=== PATIENT | female | born 1955 | race Caucasian/White ===

== ENCOUNTER 2016-04-27 11:25 | Inpatient (IN) | payer MEDICAID ==
--- NOTE | 2016-04-27 12:00 | EDPHY ---
HPI/HX/ROS/PE/MDM Narrative: Chief complaint: Cough, shortness of breath HPI: 60-year-old female with a past medical history of recurrent pneumonia. She has also had an empyema about 5 years ago which required a right lung resection. She is presenting with 4 days of worsening cough and shortness of breath. Cough is described as nonproductive. Has had some subjective fevers and chills at home. Some pain with coughing but otherwise no central chest pain. No nausea or vomiting. She denies a history of COPD but does states that she is supposed to be using inhalers daily which she does intermittently. Does not recall if she got a flu vaccine this year not. ROS: 10 point Review of Systems is negative except as noted in the HPI. Physical exam: Gen: Awake, Alert, No Distress, sats 88% on room air HEENT: Nose: no rhinorrhea Eyes: PERRLA, EOMI Mouth: Moist mucosa Neck: Supple, no JVD Chest: nontender, breath sounds decreased at the right base with some crackles, no wheeze Heart: S1, S2 normal, no murmur Abd: Soft, non-tender, no guarding Back: no CVA tenderness, no midline tenderness Ext: no edema, non-tender Skin: no rash Neuro: CN II-XII intact, Sensation grossly intact, Strength 5/5 in bilateral upper and lower extremities ED Course: Chest x-ray: Interpreted by Dr. Alicea: Prominent perihilar interstitial markings consistent with viral process or acute bronchitis. No focal infiltrate. CBC is normal. Chest x-ray shows no focal infiltrate. Patient had no significant wheeze on initial examination but is been hypoxic. She was given a DuoNeb and is feeling improved. Repeat examination again she has no significant wheeze. Patient was weaned down to room air an oxygen saturations dropped down to 84%. She was restarted back on oxygen 2 L via nasal cannula. She was also given prednisone 60 mg p. o.. I have discussed with , hospitalist. He will admit to his service for further evaluation. Given the patient is afebrile and has no white count or productive sputum at this time he will hold off on antibiotics. - Data Points Laboratory Results: Laboratory Results 04/27/16 11:59 04/27/16 11:59 04/27/16 04/27/16 11:59 11:47 WBC 9.35 10^3/uL (3.80-9.50) RBC 5.18 10^6/uL (4.18-5.33) Hgb 17.0 H g/dL (12.6-16.3) Hct 50.7 H % (38.0-47.0) MCV 97.9 fL (81.5-99.8) MCH 32.8 pg (27.9-34.1) MCHC 33.5 g/dL (32.4-36.7) RDW 12.6 % (11.5-15.2) Plt Count 271 10^3/uL (150-400) MPV 9.0 fL (8.7-11.7) Neut % (Auto) 56.3 % (39.3-74.2) Lymph % (Auto) 27.6 % (15.0-45.0) Emmons % (Auto) 10.5 % (4.5-13.0) Eos % (Auto) 4.8 % (0.6-7.6) Baso % (Auto) 0.6 % (0.3-1.7) Nucleat RBC Rel Count 0.0 % (0.0-0.2) Absolute Neuts (auto) 5.26 10^3/uL (1.70-6.50) Absolute Lymphs (auto) 2.58 10^3/uL (1.00-3.00) Absolute Monos (auto) 0.98 H 10^3/uL (0.30-0.80) Absolute Eos (auto) 0.45 H 10^3/uL (0.03-0.40) Absolute Basos (auto) 0.06 10^3/uL (0.02-0.10) Absolute Nucleated RBC 0.00 10^3/uL (0-0.01) Immature Gran % 0.2 % (0.0-1.1) Immature Gran # 0.02 10^3/uL (0.00-0.10) Sodium 142 mEq/L (134-144) Potassium 4.7 mEq/L (3.5-5.2) Chloride 104 mEq/L (97-110) Carbon Dioxide 25 mEq/l (22-31) Anion Gap 13 mEq/L (8-16) BUN 12 mg/dL (7-23) Creatinine 0.6 mg/dL (0.6-1.0) Estimated GFR > 60 Glucose 97 mg/dL (70-100) Calcium 9.8 mg/dL (8.5-10.4) Troponin I < 0.012 ng/mL (0-0.034) Influenza Typ A,B (DFA) NEGATIVE FOR FLU (NEGATIVE) Medications Given: Discontinued Medications Albuterol/Ipratropium (Duoneb) 3 ml IH EDNOW ONE Stop: 04/27/16 13:08 Last Admin: 04/27/16 13:33 Dose: 3 ml Prednisone (Prednisone) 60 mg PO EDNOW ONE Stop: 04/27/16 14:23 Last Admin: 04/27/16 14:33 Dose: 60 mg General Time Seen by Provider: 04/27/16 11:36 Initial Vital Signs: Initial Vital Signs Temperature (C) 37 C 04/27/16 11:26 Heart Rate 82 04/27/16 11:26 Respiratory Rate 18 04/27/16 11:26 Blood Pressure 122/74 H 04/27/16 11:26 O2 Sat (%) 92 04/27/16 11:26 O2 Delivery Mode Nasal Cannula O2 (L/minute) 3 Allergies/Adverse Reactions: No Known Allergies Allergy (Verified 04/27/16 11:26) Home Medications: Medication Instructions Recorded NK [No Known Home Meds] 04/27/16 Departure - Departure Disposition: [facility] Inpatient Acute Clinical Impression: Chronic obstructive pulmonary disease with acute exacerbation Condition: Fair
[2016-04-27 12:39] LABS: % IMMATURE GRANULYOCYTES 0.2 % (0.0-1.1); ABSOLUTE IMMATURE GRANULOCYTES 0.02 10^3/uL (0.00-0.10); ADD DIFF? NO; ADD MORPH? NO; ADD SCAN? NO; ATYPICAL LYMPHOCYTE FLAG 30 (0-99); FRAGMENT RBC FLAG 0 (0-99); HEMATOCRIT 50.7 % (38.0-47.0); LEFT SHIFT FLG 0 (0-99); LIPEMIA HEMOLYSIS FLAG 80 (0-99); MEAN CELL HEMOGLOBIN 32.8 pg (27.9-34.1); MEAN CELL HEMOGLOBIN CONCENTR. 33.5 g/dL (32.4-36.7); MEAN CELL VOLUME 97.9 fL (81.5-99.8); PLATELET CLUMPS FLAG 0 (0-99); PLATELET COUNT 271 10^3/uL (150-400); RED BLOOD CELL COUNT 5.18 10^6/uL (4.18-5.33); RED CELL DISTRIBUTION WIDTH 12.6 % (11.5-15.2)
--- NOTE | 2016-04-27 12:48 | DX ---
PA and Lateral Chest X-Ray 1143 hours History: Cough and congestion. Previous right lower lobe resection. Comparison to prior study from February 13, 2011. Findings: Heart size and pulmonary vasculature are normal. There is peribronchial cuffing seen in t he perihilar region and prominence of perihilar interstitial markings. There are no peripheral infilt rates or effusions. Osseous structures are intact. Impression: Prominence of perihilar interstitial markings and peribronchial cuffing. Findings are non specific but can be seen with bronchitis, reactive airway disease, or viral process.
[2016-04-27 13:01] LABS: ANION GAP 13 mEq/L (8-16); CALCIUM 9.8 mg/dL (8.5-10.4); CARBON DIOXIDE 25 mEq/l (22-31); CHLORIDE 104 mEq/L (97-110); CREATININE 0.6 mg/dL (0.6-1.0); GLOMERULAR FILTRATION RATE > 60; GLUCOSE 97 mg/dL (70-100); POTASSIUM 4.7 mEq/L (3.5-5.2); SODIUM 142 mEq/L (134-144)
[2016-04-27] MEDS ORDERED: IPRATROPIUM/ALBUTEROL 3 ML DEYVIAL IH ONE (13:07)
[2016-04-27 13:10] LABS: TROPONIN I < 0.012 ng/mL (0-0.034)
[2016-04-27] MEDS ORDERED: predniSONE 20 MG TAB PO ONE (14:22)
[2016-04-27] MEDS ORDERED: ONDANSETRON 4 MG/2 ML VIAL IVP PRN (16:55)
[2016-04-27] MEDS ORDERED: ALBUTEROL 3 ML DEYVIAL IH PRN (16:55)
[2016-04-27] MEDS ORDERED: ACETAMINOPHEN 325 MG TAB PO PRN (16:55)
[2016-04-27] MEDS ORDERED: ONDANSETRON DISINTEGRATING 4 MG TAB PO PRN (16:55)
[2016-04-27] MEDS ORDERED: TEMAZEPAM 15 MG CAP PO PRN (16:55)
--- NOTE | 2016-04-27 17:27 | GHP ---
[f rep st] HISTORY AND PHYSICAL DATE OF ADMISSION: 04/27/2016 CHIEF COMPLAINT: Shortness of breath. HISTORY OF PRESENT ILLNESS: A 60-year-old female smoker who presents with 3 days of increasing short ness of breath. She started off with an upper respiratory tract infection with sore throat, runny no se, and fevers. This progressed into shortness of breath and wheezing. She has a little bit of ches t pain from coughing. She has no productive cough currently with no sputum. REVIEW OF SYSTEMS: A 10-point review of systems was obtained and was negative. PAST MEDICAL HISTORY: Had a right-sided necrotizing pneumonia with empyema requiring VATS with decor tication. MEDICATIONS: None. SOCIAL HISTORY: Smokes about 5 cigarettes per day. No alcohol. FAMILY HISTORY: Reviewed and noncontributory. PHYSICAL EXAM: VITAL SIGNS: Afebrile. Blood pressure is 131/83, heart rate is 82, oxygen saturatio n 96% on 3 L, and was 84% on room air. GENERAL: She is well developed in no apparent distress. ROBYN NT: Nonicteric sclerae. Extraocular movements intact. Moist mucous membranes. NECK: Supple. No thyromegaly. LUNGS: Good effort. Some coarse expiratory wheezes and slight rhonchi bilaterally. C ARDIOVASCULAR: Regular rate and rhythm. No murmurs, rubs, or gallops. ABDOMEN: Positive bowel holli nds. Soft, nontender, nondistended. No hepatosplenomegaly. EXTREMITIES: No clubbing, cyanosis, or edema. SKIN: Without rash. Warm, intact. NEUROLOGIC: Alert and oriented x3. Moving all 4 extre mities equally. PSYCHIATRIC: Normal mood and affect. LABORATORIES: White count is 9, hemoglobin is 17, platelets are 271. Chemistries normal. Troponin is negative. Chest x-ray, personally reviewed and interpreted, shows no pneumonia. ASSESSMENT: This is a 60-year-old female presenting with a chronic obstructive pulmonary disease exa cerbation. PLAN: 1. COPD exacerbation. We will continue steroids that have been ordered by the emergency department. We will also do frequent nebulizer treatments. She has no change in sputum color and sputum. No e levated white blood cell count, and a normal chest x-ray, and thus we will hold off on antibiotics. Since she says she is prone to pneumonia, we will get another chest x-ray in the morning. 2. Acute hypoxic respiratory failure. Hopefully, this will improve with further treatment. 3. Tobacco use. We will use a nicotine patch. /[id number]/MODL
[2016-04-27] MEDS: IPRATROPIUM/ALBUTEROL 3 ML DEYVIAL IH SCH (21:52)
[2016-04-28] MEDS: IPRATROPIUM/ALBUTEROL 3 ML DEYVIAL IH SCH ×4 (05:57→22:14)
[2016-04-28 05:58] LABS: % IMMATURE GRANULYOCYTES 0.6 % (0.0-1.1); ABSOLUTE IMMATURE GRANULOCYTES 0.06 10^3/uL (0.00-0.10); ADD DIFF? NO; ADD MORPH? NO; ADD SCAN? NO; ATYPICAL LYMPHOCYTE FLAG 30 (0-99); FRAGMENT RBC FLAG 0 (0-99); HEMATOCRIT 49.9 % (38.0-47.0); LEFT SHIFT FLG 0 (0-99); LIPEMIA HEMOLYSIS FLAG 90 (0-99); MEAN CELL HEMOGLOBIN 33.5 pg (27.9-34.1); MEAN CELL HEMOGLOBIN CONCENTR. 34.1 g/dL (32.4-36.7); MEAN CELL VOLUME 98.4 fL (81.5-99.8); PLATELET CLUMPS FLAG 0 (0-99); PLATELET COUNT 262 10^3/uL (150-400); RED BLOOD CELL COUNT 5.07 10^6/uL (4.18-5.33); RED CELL DISTRIBUTION WIDTH 12.3 % (11.5-15.2)
[2016-04-28 06:05] LABS: ANION GAP 10 mEq/L (8-16); CALCIUM 9.3 mg/dL (8.5-10.4); CARBON DIOXIDE 27 mEq/l (22-31); CHLORIDE 104 mEq/L (97-110); CREATININE 0.6 mg/dL (0.6-1.0); GLOMERULAR FILTRATION RATE > 60; GLUCOSE 104 mg/dL (70-100); POTASSIUM 5.3 mEq/L (3.5-5.2); SODIUM 141 mEq/L (134-144)
[2016-04-28] MEDS: ENOXAPARIN 40 MG/0.4 ML SYR SC SCH (07:32)
[2016-04-28] MEDS: predniSONE 20 MG TAB PO SCH (07:33)
[2016-04-28] MEDS: NICOTINE 7 MG/24 HR PATCH TD SCH (07:33)
--- NOTE | 2016-04-28 12:16 | DX ---
PA Upright and Lateral Views of the Chest, 11:25 a.m. on April 28, 2016 Clinical History: 60-year-old female inpatient with a COPD exacerbation. Rule out pneumonia. Comparison Study: Chest, dated April 27, 2016. Findings: The inspiratory depth is to between the 9th and 10th posterior rib levels. The cardiac silh ouette is mildly enlarged, with a C:T ratio of 15 : 27 cm. There is a moderate degree of central carmen hilar bronchial wall thickening. There is no focal infiltrate, pleural effusion, peripheral interstit ial edema, or pneumothorax. The osseous structures are age-appropriate. The trachea is midline. Impression: Moderate perihilar bronchitis with mild cardiomegaly, but no focal infiltrate or pleural effusion.
[2016-04-28] MEDS ORDERED: AZITHROMYCIN 250 MG TAB PO ONE (16:11)
--- NOTE | 2016-04-28 16:12 | HOSPPROG ---
Hospitalist Progress Note Assessment/Plan: 60 yo F with copd pw acute copd exacerbation # acute on chronic copd: on personal review of cxr no e/o pna, improving but still having some sob, continue nebs/albuterol and will add azithromycin. # acute hypoxic respiratory failure: initially requiring 2L to maintain o2 sats in the low 90s but now doing well on ra # tobacco use: continue nicotine patch # dispo: IP status, will need > 48 hours stay for eval/mgmt of above Patient new to my care. Old records reviewed and summarized as above. Subjective: no significant overnight events, patient feeling a bit better but still very sob Objective: Vital Signs Temp Pulse Resp BP Pulse Ox 37.0 C 96 16 107/82 H 97 04/28/16 16:00 04/28/16 16:00 04/28/16 16:00 04/28/16 16:00 04/28/16 16:00 Laboratory Results 04/28/16 05:25 04/28/16 05:25 04/27/16 04/28/16 04/29/16 05:59 05:59 05:59 Intake Total 300 Balance 300 awake alert nad anicteric op clear rrr no mrg dec bs throughout, scattered wheeze soft nt nd no cce warm dry well perfused oriented appropriate ICD10 Worksheet Patient Problems: Problems Problem Status Diagnosed Chronic obstructive pulmonary disease with acute exacerbation Acute
[2016-04-28] MEDS: PATCH REMOVAL 1 EA PATCH TD SCH (21:00)
[2016-04-29] MEDS: IPRATROPIUM/ALBUTEROL 3 ML DEYVIAL IH SCH ×4 (05:46→20:59)
[2016-04-29] MEDS: predniSONE 20 MG TAB PO SCH (08:41)
[2016-04-29] MEDS: AZITHROMYCIN 250 MG TAB PO SCH (08:41)
[2016-04-29] MEDS: ENOXAPARIN 40 MG/0.4 ML SYR SC SCH (08:41)
[2016-04-29] MEDS: NICOTINE 7 MG/24 HR PATCH TD SCH (08:41)
[2016-04-29 11:52] LABS: % IMMATURE GRANULYOCYTES 0.5 % (0.0-1.1); ABSOLUTE IMMATURE GRANULOCYTES 0.05 10^3/uL (0.00-0.10); ADD DIFF? NO; ADD MORPH? NO; ADD SCAN? NO; ATYPICAL LYMPHOCYTE FLAG 20 (0-99); FRAGMENT RBC FLAG 0 (0-99); HEMATOCRIT 51.4 % (38.0-47.0); HEMOGLOBIN 17.4 g/dL (12.6-16.3); LEFT SHIFT FLG 0 (0-99); LIPEMIA HEMOLYSIS FLAG 90 (0-99); MEAN CELL HEMOGLOBIN 33.2 pg (27.9-34.1); MEAN CELL HEMOGLOBIN CONCENTR. 33.9 g/dL (32.4-36.7); MEAN CELL VOLUME 98.1 fL (81.5-99.8); MEAN PLATELET VOLUME 8.9 fL (8.7-11.7); PLATELET CLUMPS FLAG 0 (0-99); PLATELET COUNT 285 10^3/uL (150-400); RED BLOOD CELL COUNT 5.24 10^6/uL (4.18-5.33); RED CELL DISTRIBUTION WIDTH 12.6 % (11.5-15.2)
[2016-04-29 12:32] LABS: ALANINE AMINOTRANSFERASE 36 IU/L (9-52); ALKALINE PHOSPHATASE 102 IU/L (38-126); ANION GAP 12 mEq/L (8-16); ASPARTATE AMINOTRANSFERASE 31 IU/L (14-46); BILIRUBIN,TOTAL 0.6 mg/dL (0.1-1.4); CALCIUM 9.5 mg/dL (8.5-10.4); CARBON DIOXIDE 28 mEq/l (22-31); CHLORIDE 101 mEq/L (97-110); CREATININE 0.7 mg/dL (0.6-1.0); GLOMERULAR FILTRATION RATE > 60; GLUCOSE 151 mg/dL (70-100); POTASSIUM 4.9 mEq/L (3.5-5.2); SODIUM 141 mEq/L (134-144); TOTAL PROTEIN 7.7 g/dL (6.3-8.2)
[2016-04-29] MEDS ORDERED: GADOBUTROL 10 ML VIAL IVP ONE (12:57)
--- NOTE | 2016-04-29 13:44 | MR ---
MRI of the Brain (Without and With Contrast) 1240 hours Clinical Indications: Gait instability, chronic headaches, floaters in vision, balance problems, roly ry problems. Technique: T1-weighted images were acquired axially and sagittally from the foramen magnum to the ve rtex. Axial fast inversion-recovery, fast T2-weighted, and diffusion-weighted axial images were obta ined without contrast. Postcontrast axial, coronal and sagittal T1-weighted images with the uneventfu l intravenous administration of 7 mL Gadavist contrast. Additional sagittal FLAIR series. Findings: The ventricles, cisterns, and sulci are normal without atrophy. No hydrocephalus, midline shift, herniation, or epidural/subdural hematomas. No intracranial hemorrhage or masses. Diffusion-we ighted images demonstrate no acute infarct. Cerebellar tonsils are in normal position. Pituitary glan d is normal in size. Normal signal flow-void in the superior sagittal sinus, basilar artery, and bila teral internal carotid arteries indicating patency. Multiple nonspecific bilateral white matter hyper intense T2/FLAIR signal abnormalities without mass effect or enhancement. White matter lesions appear most prominent in bilateral frontal lobes but also noted in bilateral parietal and occipital lobes i n the superficial, deep, and mid white matter without definite corpus callosal lesions. A subtle subc entimeter focus of enhancement in the inferior vitaliy centrally on axial postcontrast image 12, without mass effect. No additional enhancing lesions on the postcontrast series. Moderate peripheral mucosal thickening in bilateral maxillary, ethmoid, frontal, and sphenoid sinuses. No evidence of cerebellar infarcts or enhancing lesions. Impression: 1. Moderate bilateral sinusitis. 2. No acute hemorrhage, definite acute infarct, hydrocephalus or mass effect. 3. Multiple nonspecific hyperintense T2/FLAIR signal abnormalities in the white matter of bilateral c erebral hemispheres. Differential diagnosis includes moderate microvascular ischemic gliosis, post-in fectious/post-inflammatory sequela, atypical demyelinating disease, or migraine-related sequela. 4. Subtle subcentimeter faint enhancing lesion in the inferior central vitaliy which may represent benig n capillary telangiectasia but is nonspecific. Follow up MR brain imaging is recommended in 1 to 2 mo nths to ensure stability.
--- NOTE | 2016-04-29 16:31 | HOSPPROG ---
Hospitalist Progress Note Assessment/Plan: 60 yo F with copd pw acute copd exacerbation # acute on chronic copd: on personal review of cxr no e/o pna, improving but still having sob, continue nebs/albuterol/azithromycin. # acute hypoxic respiratory failure: initially requiring 2L to maintain o2 sats in the low 90s, has been weaning somewhat # gait instability/confusion/near syncope: patient had an episode of near syncope today, and noted that for 2 months she has been having issues with gait instability, near falls, numbness and tingling of bilateral hands, floaters in her vision and inability to concentrates. She is tearful discussing this, but denies depression. Brain MRI obtained and notable for nonspecific white matter abnormalities--post infectious vs atypical demyelinating disease etc. Given sxs and MRI findings, will ask for neuro to evaluate. Will check TSH/B12/RPR/A1c. # polycythemia: has been present since admission but not previously, she is a smoker and likely related to chronic hypoxia, less likely other etiology though given her above complaints chronic CO exposure also possible and will check methemoglobin level. Will defer checking epo. Has had elevated platelets as well in the past, though currently wnl. # tobacco use: continue nicotine patch # dispo: IP status, will need > 48 hours stay for eval/mgmt of above Subjective: no significant overnight events, today patient had a near syncopal event, she admits to having lots of issues similar to this lately Objective: Vital Signs Temp Pulse Resp BP Pulse Ox 36.8 C 93 14 99/75 L 91 L 04/29/16 15:45 04/29/16 15:45 04/29/16 15:45 04/29/16 15:45 04/29/16 15:45 Laboratory Results 04/29/16 11:42 04/29/16 11:42 04/28/16 04/29/16 04/30/16 05:59 05:59 05:59 Intake Total 300 1750 Balance 300 1750 awake alert nad anicteric op clear rrr no mrg dec bs throughout, normal wob soft nt nd no cce warm dry well perfused oriented tearful - Time Spent With Patient Time Spent with Patient: greater than 35 minutes Time Spent with Patient: Greater than 35 minutes spent on this patients care, greater than 50% of time spent counseling, educating, and coordinating care regarding the above mentioned plan. ICD10 Worksheet Patient Problems: Problems Problem Status Diagnosed Chronic obstructive pulmonary disease with acute exacerbation Acute
[2016-04-29] MEDS: PATCH REMOVAL 1 EA PATCH TD SCH ×2 (19:38→21:25)
[2016-04-30] MEDS: IPRATROPIUM/ALBUTEROL 3 ML DEYVIAL IH SCH ×2 (05:34→10:45)
[2016-04-30 05:35] LABS: % IMMATURE GRANULYOCYTES 0.3 % (0.0-1.1); ABSOLUTE IMMATURE GRANULOCYTES 0.04 10^3/uL (0.00-0.10); ADD DIFF? NO; ADD MORPH? NO; ADD SCAN? NO; ATYPICAL LYMPHOCYTE FLAG 50 (0-99); FRAGMENT RBC FLAG 0 (0-99); HEMATOCRIT 48.5 % (38.0-47.0); HEMOGLOBIN 16.1 g/dL (12.6-16.3); LEFT SHIFT FLG 0 (0-99); LIPEMIA HEMOLYSIS FLAG 80 (0-99); MEAN CELL HEMOGLOBIN 33.5 pg (27.9-34.1); MEAN CELL HEMOGLOBIN CONCENTR. 33.2 g/dL (32.4-36.7); MEAN PLATELET VOLUME 9.1 fL (8.7-11.7); PLATELET CLUMPS FLAG 0 (0-99); PLATELET COUNT 255 10^3/uL (150-400); RED CELL DISTRIBUTION WIDTH 12.3 % (11.5-15.2)
[2016-04-30 05:43] LABS: ANION GAP 7 mEq/L (8-16); CALCIUM 9.2 mg/dL (8.5-10.4); CARBON DIOXIDE 29 mEq/l (22-31); CHLORIDE 104 mEq/L (97-110); CREATININE 0.6 mg/dL (0.6-1.0); GLOMERULAR FILTRATION RATE > 60; GLUCOSE 89 mg/dL (70-100); POTASSIUM 4.7 mEq/L (3.5-5.2); SODIUM 140 mEq/L (134-144)
[2016-04-30 08:00] VITALS: BP 115/78; TEMP 98.2
--- NOTE | 2016-04-30 08:36 | HOSPPROG ---
Hospitalist Progress Note Assessment/Plan: 60 yo F with copd pw acute copd exacerbation. Today is my 1st encounter with the patient. Chart reviewed. # acute on chronic copd: - Today is on 1 L of oxygen - on nebulizers and azithromycin - chest x-ray shows no evidence of pneumonia -checked her on room air myself and O2 sats are 90-94% # acute hypoxic respiratory failure: - slowly improving # gait instability/confusion/near syncope: - neurology to see today - tsh is 2.6, RPR is negative - patient had a near syncopal event yesterday and has been having issues for approximately 2 months - her symptoms have resolved - appreciate Dr Bella - MRI shows nothing acute/chronic microvascular ischemic change - encouraged her to get OP PT # polycythemia: has been present since admission but not previously, she is a smoker and likely related to chronic hypoxia, -methoglobin level is stable # nicotine dependence:continue nicotine patch -counseled her on stopping smoking/ she has a new grand-daughter and is very motiveated # dispo: dc home Subjective: Laury is ready to go home/ no further complaints. Objective: Vital Signs Temp Pulse Resp BP Pulse Ox 36.8 C 80 16 115/78 94 04/30/16 07:58 04/30/16 07:58 04/30/16 07:58 04/30/16 07:58 04/30/16 07:58 Laboratory Results 04/30/16 04:42 04/30/16 04:42 04/29/16 04/30/16 05/01/16 05:59 05:59 05:59 Intake Total 1750 1000 Balance 1750 1000 - Physical Exam Constitutional: no apparent distress, appears nourished, not in pain Eyes: PERRL Ears, Nose, Mouth, Throat: hearing normal Cardiovascular: regular rate and rhythym Respiratory: no respiratory distress, reduced air movement Skin: warm, normal color Musculoskeletal: full muscle strength, no muscle tenderness Neurologic: AAOx3 Psychiatric: interacting appropriately, other (tearful at times) ICD10 Worksheet Patient Problems: Problems Problem Status Diagnosed Chronic obstructive pulmonary disease with acute exacerbation Acute
[2016-04-30] MEDS: AZITHROMYCIN 250 MG TAB PO SCH (08:39)
[2016-04-30] MEDS: NICOTINE 7 MG/24 HR PATCH TD SCH (08:40)
[2016-04-30] MEDS: predniSONE 20 MG TAB PO SCH (08:40)
[2016-04-30] MEDS: ENOXAPARIN 40 MG/0.4 ML SYR SC SCH (08:44)
--- NOTE | 2016-04-30 09:42 | PDCONSULT ---
Construction Area Manager Note: HOSPITAL NEUROLOGY CONSULT REQUESTING: Loulou Pizarro MD REASON:abnormal MRI, gait instability HPI: This is a 60-year-old right-handed woman with a history of cigarette smoking and COPD who was admitted for a COPD exacerbation on April 27. Yesterday, the patient had made note to the hospitalist that she was having 2-3 months of gait instability without falls, numbness and tingling in the hands and feet and visual disturbance. This prompted an MRI brain without contrast which revealed subcortical and periventricular T2 FLAIR hyperintensities, reflective of chronic microvascular ischemic change, which is not unexpected given her history of tobacco abuse. On interview today, the patient states that she has had episodes where she feels like she steps off to the side with her gait from knees knocking together. She denies any room spinning dizziness, abnormal movements in the legs, falls. On my interview today, she out right denies any sensory phenomenon in the extremities and denies any visual disturbances. She denies any extremity weakness, bowel or bladder dysfunction or back pain. ROS: As per the HPI, otherwise a complete 12 point ROS was performed and is negative ALLERGIES AND MEDS: As recorded in the EMR - reviewed and reconciled PFSH: As per the intake H&P by Dr. Prado from April 27, 2016 EXAM: GEN: WDWN sitting in NAD HEENT: NCAT, sclera anicteric, conjunctiva not injected, MMM, oropharynx clear, no scalp tenderness NECK: supple, nontender, no meningismus CV: RRR s1 s2 wo m/r/c/g. Carotid pulses 2+ wo bruit NEURO: MS: awake, alert, oriented to all spheres. Speech nondysarthric. No language disturbance. Follows commands. Attends to both sides. Recent/remote memory grossly intact. Mood euthymic. Good fund of knowledge. CN: pupils 3mm round and reactive. Fundi with sharp discs. VFF. Primary gaze centered. Full ocular motility. Facial sensation preserved. Face symmetric. Palatoglossal movements intact. Shoulder shrug and head turn strong. MOTOR: normal bulk/tone. No adventitial movements. Full power throughout. SENSORY: intact to all modalities throughout. No extinction. COORD: no ataxia FN/HS. Adela preserved. Romberg neg. REFLEX: plantars down. No clonus. DTRS 1/4. GAIT: rises unassisted. Narrow base. Intact stride length/heel strike/toe lift /arm swing. Turns with 2 steps. Able to tandem without difficulty. DATA: Labs reviewed in EMR MRI brain without contrast from April 29 personally reviewed as per the HPI IMPRESSION AND RECOMMENDATIONS: // SUBJECTIVE GAIT DISTURBANCE // CHRONIC MICROVASCULAR ISCHEMIC CHANGES ON MRI // TOBACCO ABUSE WITH CIGARETTES // COPD EXACERBATION Patient with subjective complaints of gait instability. Her exam is normal today. She has no sensory motor dysfunction and her gait analysis today is normal. Her complaint of knees knocking together may reflect more of an orthopedic problem rather than a neurologic problem. Otherwise, given her normal exam I do not have any objective evidence of gait dysfunction today. With regards to her MRI, this is very much likely chronic microvascular ischemic change, which is not unexpected given her age and her history of tobacco abuse. I did corporate travel counselor her on smoking cessation. Blood pressure control will be of the utmost importance as well given it is the primary risk factor for stroke and microvascular ischemic disease. She can follow up with her primary care provider for further vascular risk factor optimization and smoking cessation therapy.
[2016-04-30 10:58] VITALS: PULSE 94; RESP 20; O2SAT 91
--- NOTE | 2016-04-30 12:17 | GDS ---
[f rep st] DISCHARGE SUMMARY DISCHARGE DIAGNOSES: 1. Acute on chronic chronic obstructive pulmonary disease. 2. Acute hypoxemic respiratory failure. 3. Gait instability with associated confusion. 4. Polycythemia. 5. Nicotine dependence. CONSULTATIONS DURING HER STAY: Dr. Santosh Bella with Neurology services. BRIEF HISTORY: Roxanne Spencer is a 60-year-old woman, who presented with 3 days of increasing shortness of breath. She started off with an upper respiratory tract infection with a sore throat, runny nose, and fevers. Over her stay, her symptoms improved. She was treated with azithromycin. In addition, the patient had some concerns of near-syncopal episodes, as well as some gait instability. At that time, an MRI was performed. This was seen and evaluated by Dr. Santosh Bella, who noted that she had chronic microvascular ischemic changes. HOSPITAL COURSE PER PROBLEM: 1. Acute on chronic COPD: Today, she is on room air during my evaluation. Nebulizers and azithromycin and prednisone will be continued. I checked her on room air myself. Her oxygen levels were 90-94% even with activity. Because she is at a higher altitude, recommend that she get further evaluated. She has a pulse oximeter at home and can monitor this herself. I told her if her oxygen levels are less than 87% to see Dr. Palacios and get oxygen ordered for home. 2. Acute hypoxemic respiratory failure, stable. 3. Gait instability: Neurology evaluated her. MRI showed nothing acute. I have recommended that she get further workup in the outpatient setting with physical therapy. TSH is stable at 2.6. RPR is negative. 4. Polycythemia: This is most likely secondary to being at a high altitude and being hypoxemic, and being a smoker. Methemoglobin level was checked which is stable. 5. Nicotine dependence: She is very motivated to quit smoking. She has a new granddaughter, whom she wants to spend time with. PENDING LABS AND TESTS: None. CONDITION AT DISCHARGE: Stable. Blood pressure is 115/78, heart rate is 80, respiratory rate 16, O2 sats on room air are 91%, temperature is 36.8 Celsius. MEDICATIONS AT DISCHARGE: Please see the EMR. DISCHARGE INSTRUCTIONS: 1. To follow up with Dr. Palacios for further evaluation. 2. She has been on inhalers prior to admission, including Advair. Recommend she resume these. 3. Check her oxygen levels at home. 4. If she develops fever, chest pain, or shortness of breath return to the emergency room. Greater than 30 minutes discharging and coordinating care. /[id number]/MODL MTDD
== END 2016-04-30 12:13 | disposition home or self-care (01) | DRG 190 ==
LOC: F3E 15:12
PROVIDERS: ADMIT Internal Medicine; ATTEND Internal Medicine
DX: J44.1 Chronic obstructive pulmonary disease with (acute) exacerbation (principal); J96.01 Acute respiratory failure with hypoxia; F17.210 Nicotine dependence, cigarettes, uncomplicated; D75.1 Secondary polycythemia; R26.89 Other abnormalities of gait and mobility; I67.82 Cerebral ischemia
CPT/HCPCS: 82607-90; A9585; J1650

== ENCOUNTER 2017-06-12 10:34 | Emergency (ER) | payer MEDICAID ==
[2017-06-12 10:39] VITALS: RESP 18
[2017-06-12] MEDS ORDERED: NS 1,000 ML IV ONE (11:39)
[2017-06-12 11:53] LABS: PLATELET COUNT 250 10^3/uL (150-400)
[2017-06-12] MEDS ORDERED: IOPAMIDOL (ISOVUE-300) 100 ML BTL ONE (12:35)
--- NOTE | 2017-06-12 13:43 | EDPHY ---
H & P Smoking Status: Current every day smoker Time Seen by Provider: 06/12/17 11:27 HPI/ROS: CHIEF COMPLAINT: Abdominal pain HISTORY OF PRESENT ILLNESS: 61-year-old female presents to the emergency department with abdominal pain that began 2 or 3 days ago. The patient has a known history of diverticulitis. She saw her primary care provider today, Dr. Palacios, who was concerned that she had a possible abscess in Center to the emergency department for evaluation. Patient reports no vomiting or diarrhea. No fevers or chills. No chest pain or difficulty breathing. She has pain isolated to the left side of her abdomen. She states that this feels very similar to her last episode diverticulitis which was several years ago. No melena. REVIEW OF SYSTEMS: Constitutional: No fever, no chills. Eyes: No double or blurry vision. ENT: No sore throat. Respiratory: No cough, no shortness of breath. Cardiac: No chest pain. Gastrointestinal: Abdominal pain as above. No vomiting or diarrhea Genitourinary: No dysuria. Musculoskeletal: No neck or back pain. Skin: No rashes. Neurological: No headache. 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 Afebrile. No apparent distress. Vital signs are stable. Eyes: Pupils equal and round. Extraocular motions are all intact. ENT: Mouth: Mucous membranes moist. Respiratory: No wheezing, rhonchi, or rales, lungs are clear to auscultation. Cardiovascular: Regular rate and rhythm. Gastrointestinal: Abdomen is soft. She has tenderness with palpation in the left lower quadrant. There is no masses, rebound or guarding noted. No CVA tenderness bilaterally. Neurological: Alert and oriented x 3, cranial nerves II through XII grossly intact Skin: Warm and dry, no rashes. Musculoskeletal: Nontender to palpate along the cervical, thoracic or lumbar spine. Neck is supple. Extremities: Full range of motion and no peripheral edema. Psychiatric: Patient is oriented X 3, there is no agitation. (Olena Darby) Constitutional: Initial Vital Signs Temperature (C) 36.3 C 06/12/17 10:35 Heart Rate 92 06/12/17 10:35 Respiratory Rate 18 06/12/17 10:35 Blood Pressure 106/77 06/12/17 10:35 O2 Sat (%) 92 06/12/17 10:35 O2 Delivery Mode Room Air Allergies/Adverse Reactions: No Known Allergies Allergy (Verified 04/27/16 11:26) Home Medications: Medication Instructions Recorded Albuterol 06/12/17 Ciprofloxacin [Cipro] 500 mg PO BID #20 tab 06/12/17 metroNIDAZOLE [Metronidazole] 500 mg PO TID #30 tablet 06/12/17 Medical Decision Making - Diagnostics Imaging: Discussed imaging studies w/ weight caller Radiologist ED Course/Re-evaluation: 61-year-old female presents to the emergency department with left-sided abdominal pain. She has a history of diverticulitis. Her primary care provider was concerned about possible abscess. CT imaging of the abdomen and pelvis has been ordered which reveals evidence of sigmoid diverticulitis without evidence of free fluid, abscess or perforation. Case was discussed with Dr. Dawood Griffin, secondary supervising physician, who did not directly evaluate the patient but agrees with treatment and plan. Patient was given 1st dose of ciprofloxacin 500 mg and metronidazole 500 mg p. O. In the emergency department. She will be discharged home with the same medication for the next 1 week. She was encouraged to have close follow-up with her primary care provider and return if she has any change in symptoms or feels worse. Patient verbalized understanding and agreed. (Olena Darby) I did not see this patient while she was in the emergency department. However her care was discussed with the PA while the patient was in the department. I agree with treatment plan and management (Dawood Griffin) Differential Diagnosis: Including but not limited to diverticulitis, diverticulosis, perforation, abscess, bowel obstruction, sepsis (Olena Darby) - Data Points Laboratory Results: Laboratory Results 06/12/17 11:45 06/12/17 11:45 Medications Given: Discontinued Medications Ciprofloxacin (Cipro) 500 mg PO EDNOW ONE PRN Reason: Protocol Stop: 06/12/17 14:03 Last Admin: 06/12/17 14:15 Dose: 500 mg Sodium Chloride (Ns) 1,000 mls @ 0 mls/hr IV ONCE ONE PRN Reason: Wide Open Stop: 06/12/17 11:40 Last Admin: 06/12/17 11:50 Dose: 1,000 mls Metronidazole (Flagyl) 500 mg PO EDNOW ONE PRN Reason: Protocol Stop: 06/12/17 14:03 Last Admin: 06/12/17 14:15 Dose: 500 mg Departure - Departure Disposition: Home, Routine, Self-Care Clinical Impression: Diverticulitis Condition: Good Instructions: Diverticulitis (ED) Additional Instructions: Ciprofloxacin and metronidazole as prescribed. Return if you develop fever, increasing pain, vomiting, or if you feel worse in any way. Referrals: Osman Palacios MD [Primary Care Provider] - As per Instructions Prescriptions: Ciprofloxacin [Cipro] 500 mg PO BID #20 tab metroNIDAZOLE [Metronidazole] 500 mg PO TID #30 tablet
[2017-06-12] MEDS ORDERED: CIPROFLOXACIN 500 MG TAB PO ONE (14:02)
[2017-06-12] MEDS ORDERED: metroNIDAZOLE 500 MG TAB PO ONE (14:02)
[2017-06-12 14:13] VITALS: BP 126/79; PULSE 85; TEMP 98.8; O2SAT 90
== END 2017-06-12 14:26 | disposition home or self-care (01) ==
DX: K57.92 Diverticulitis of intestine, part unspecified, without perforation or abscess without bleeding (principal); F17.200 Nicotine dependence, unspecified, uncomplicated
CPT/HCPCS: 82947-QW; Q9967